=== PATIENT | male | born 1960 | race American Indian/Alaskan Native ===

== ENCOUNTER 2018-05-13 09:09 | Outpatient (CLI) | payer OTHER ==
--- NOTE | 2018-05-13 10:29 | XRay Report ---
XRAY RIGHT HIP TWO VIEWS: 05/13/18 09:09:00 CLINICAL: Chronic right hip pain. FINDINGS: No fracture or dislocation.Mild osteoarthritis with superolateral joint space narrowing and mild superior acetabular eburnation. Small superior and inferior osteophytes. Similar but milder changes in the left hip. The pelvic bones are intact. The SI joints are normal. Normal soft tissues. IMPRESSION: Mild osteoarthritis.
== END 2018-05-13 09:10 | disposition home or self-care (01) ==
LOC: SPVIMAG 09:09
PROVIDERS: ATTEND Internal Medicine
DX: M16.11 Unilateral primary osteoarthritis, right hip (principal)